=== PATIENT | male | born 1985 ===

== ENCOUNTER 2017-11-18 13:11 | Emergency (ER) | payer OTHER ==
[2017-11-18 13:28] VITALS: BP 117/77; PULSE 94; RESP 16; TEMP 98.9; O2SAT 98
[2017-11-18] MEDS ORDERED: Tdap Vaccine 0.5 ml Vial (10-64 yrs) IM ONE ×2 (13:28→13:40)
--- NOTE | 2017-11-18 13:30 | C.PDOC ---
History Of Present Illness 32 y/o male presents to the ER for evaluation of a puncture wound to the bottom of his right foot after he stepped on a nail which punctured through his workboot into his 4th toe today. Patient states that there was some bleeding at the time which has stopped now. Denies having weakness, numbness, headache, fever, and chills. Patient reports that he is not sure if his tetanus vaccination is UTD. Time Seen by Provider: 11/18/17 13:24 Chief Complaint (Nursing): Lower Extremity Problem/Injury History Per: Patient History/Exam Limitations: no limitations Onset/Duration Of Symptoms: Hrs Current Symptoms Are (Timing): Still Present Severity: Moderate Past Medical History Reviewed: Historical Data, Nursing Documentation, Vital Signs Vital Signs: Last Vital Signs Temp 98.9 F 11/18/17 13:26 Pulse 94 H 11/18/17 13:26 Resp 16 11/18/17 13:26 BP 117/77 11/18/17 13:26 Pulse Ox 98 11/18/17 13:26 - Medical History PMH: No Chronic Diseases Surgical History: No Surg Hx Family History: States: No Known Family Hx Review Of Systems Except As Marked, All Systems Reviewed And Found Negative. Constitutional: Negative for: Fever, Chills Musculoskeletal: Positive for: Foot Pain (right foot pain) Neurological: Negative for: Headache Physical Exam - Physical Exam Appears: Non-toxic, No Acute Distress Skin: Normal Color, Warm, Dry Head: Atraumatic, Normacephalic Eye(s): bilateral: Normal Inspection Nose: Normal Oral Mucosa: Moist Neck: Supple Chest: Symmetrical Extremity: Normal ROM, No Tenderness, Other (small, shallow puncture wound to the bottom of 4th toe on right foot with no active bleeding and no erythema) Neurological/Psych: Oriented x3, Normal Speech Medical Decision Making Medical Decision Making: Impression: Puncture Wound Plan: --Tetanus Vaccination Updates: Patient has been discharged with prescription for Cipro. Disposition - Disposition Disposition: HOME/ ROUTINE Disposition Time: 13:29 Condition: STABLE Prescriptions: Ciprofloxacin [Cipro] 1 tab PO BID #14 tab Instructions: Wound Care (DC) Forms: General Discharge Instructions, [facility] ([place]), Work Excuse - Clinical Impression Clinical Impression: Puncture wound - Scribe Statement The provider has reviewed the documentation as recorded by the Scribe Summen Franky Provider Attestation: All medical record entries made by the Tracyibe were at my direction and personally dictated by me. I have reviewed the chart and agree that the record accurately reflects my personal performance of the history, physical exam, medical decision making, and the department course for this patient. I have also personally directed, reviewed, and agree with the discharge instructions and disposition.
== END 2017-11-18 14:07 | disposition home or self-care (01) ==
LOC: C.ER 13:11
DX: S91.134A Puncture wound without foreign body of right lesser toe(s) without damage to nail, initial encounter (principal); W45.0XXA Nail entering through skin, initial encounter; Y92.89 Other specified places as the place of occurrence of the external cause; Y99.0 Civilian activity done for income or pay; Z23 Encounter for immunization